=== PATIENT | female | born 1975 | race African-American/Black ===

== ENCOUNTER 2018-05-31 15:15 | Emergency (ER) | payer MEDICAID ==
[~2018-05-31] VITALS: Ht 165.1 cm; Wt 67.0 kg
[2018-05-31] MEDS ORDERED: HYDR-4001 MT (16:05)
[2018-05-31] MEDS ORDERED: CARI350T PO (16:05)
[2018-05-31] MEDS ORDERED: HYDR-4001 PO (16:05)
[2018-05-31] MEDS ORDERED: KETOROLAC 30MG/ML VIAL IV STA (18:05)
[2018-05-31 19:15] LABS: CLARITY URINE CLEAR (CLEAR); COLOR URINE YELLOW (YELLOW); KETONES URINE NEGATIVE (NEGATIVE); LEUKOCYTE ESTERASE URINE NEGATIVE (NEGATIVE); NITRITE URINE NEGATIVE (NEGATIVE); OCCULT BLOOD URINE NEGATIVE (NEGATIVE); PH URINE 5.5 (4.5-8.0); PROTEIN URINE NEGATIVE (NEGATIVE); SPECIFIC GRAVITY URINE 1.019 (1.005-1.030)
[2018-05-31] MEDS ORDERED: KETOROLAC 60MG/2ML VIAL IM ONE (20:00)
[2018-05-31 20:13] VITALS: BP 128/75
[2018-05-31 21:51] LABS: EOSINOPHILS % 3.4 % (0.0-5.0); HEMOGLOBIN. 12.8 g/dL (12.0-16.0); LYMPHOCYTES % 53.3 % (20.0-50.0); MEAN CORPUSCULAR HEMOGLOBIN 29.6 pg (28.0-32.0); MEAN CORPUSCULAR VOLUME 87.7 fL (81.0-99.0); MEAN PLATELET VOLUME 9.1 fl (7.4-10.4); MONOCYTES % 14.5 % (2.0-8.0); NEUTROPHILS % 27.8 % (40.0-76.0); PLATELET 192 x1000/uL (130-400); RED BLOOD CELL COUNT 4.33 mill/uL (4.2-5.4); RED CELL DISTRIBUTION WIDTH 12.5 % (11.6-14.6)
[2018-05-31 21:55] LABS: CHLORIDE 107 mEq/L (98-107)
[2018-05-31 21:58] LABS: PARTIAL THROMBOPLASTIN TIME 24.7 sec (23.4-31.0); PROTHROMBIN TIME 10.5 sec (9.4-11.6)
== END 2018-05-31 22:18 | disposition home or self-care (01) ==
LOC: ER 17:07
DX: R10.31 Right lower quadrant pain (principal)
CPT/HCPCS: 36415; 74176; 80053; 81003; 81025; 83690; 85025; 85610; 85730; 96372; 99285; J1885; Z7610